=== PATIENT | male | born 1945 | race Caucasian/White ===

== ENCOUNTER 2022-10-02 13:19 | Emergency (ER) | payer MEDICARE, OTHER ==
[~2022-10-02] VITALS: Ht 180.3 cm; Wt 84.0 kg
[2022-10-02 14:01] LABS: BASOPHILS % (AUTO) 0.3 % (0-1); EOSINOPHILS % (AUTO) 0.3 % (0-6); HEMATOCRIT 38.2 % (42.0-52.0); HEMOGLOBIN 12.6 g/dl (14.0-17.9); LYMPHOCYTES # (AUTO) 2.3 X10'3 (1.1-4.8); LYMPHOCYTES % (AUTO) 17.4 % (21-51); MEAN CORPUSCULAR HEMOGLOBIN 29.3 PG (27.0-31.0); MEAN CORPUSCULAR VOLUME 88.9 FL (78-98); MEAN PLATELET VOLUME 7.2 FL (7.4-10.4); MONOCYTES # (AUTO) 0.7 X10'3 (0-0.9); PLATELET COUNT 348 X10'3 (140-440); RED CELL DISTRIBUTION WIDTH 13.3 % (11.5-14.5); WHITE BLOOD COUNT 13.1 X10'3 (4.5-11.0)
[2022-10-02 14:13] LABS: ALANINE AMINOTRANSFERASE 34 U/L (12-78); ALBUMIN 4.2 G/DL (3.4-5.0); ALBUMIN/GLOBULIN RATIO 1.2 (1.1-1.5); ALKALINE PHOSPHATASE 70 IU/L (46-116); ANION GAP 12 (8-16); ASPARTATE AMINO TRANSFERASE 38 U/L (10-37); BILIRUBIN,TOTAL 0.6 MG/DL (0.1-1.0); BLOOD UREA NITROGEN 40 MG/DL (7-18); BUN/CREATININE RATIO 21.4 (5.4-32.0); CALCIUM 9.6 MG/DL (8.5-10.1); CHLORIDE 104 MMOL/L (99-107); CREATININE 1.87 MG/DL (0.60-1.10); GLUCOSE 152 MG/DL (70-104); POTASSIUM 3.8 MMOL/L (3.5-5.1); SODIUM 141 MMOL/L (135-145); TOTAL CARBON DIOXIDE 24.6 MMOL/L (24-32); TOTAL PROTEIN 7.8 G/DL (6.4-8.2); eGFR 35 ML/MIN
[2022-10-02] MEDS ORDERED: dextrose 5%-normal saline 1,000 ML IV ONE (14:20)
[2022-10-02] MEDS ORDERED: morphine 4 MG/ML inj SYRINge IV ONE (14:20)
[2022-10-02] MEDS ORDERED: ondansetron/PF 4mg/2ml inj IV ONE (14:20)
[2022-10-02] MEDS ORDERED: TRAM1TAB7 PO (15:20)
[2022-10-02] MEDS ORDERED: ONDA4TAB12 PO (15:20)
[2022-10-02] MEDS ORDERED: HYDROcodone/acetaminophen 10/325mg tab PO ONE (15:20)
[2022-10-02] MEDS ORDERED: FLO0.4C PO (15:20)
[2022-10-02 16:05] VITALS: BP 126/80
== END 2022-10-02 16:06 | disposition home or self-care (01) ==
LOC: ER 13:19
DX: N20.1 Calculus of ureter (principal); R10.31 Right lower quadrant pain; R11.0 Nausea; E78.00 Pure hypercholesterolemia, unspecified; I10 Essential (primary) hypertension; I25.2 Old myocardial infarction; Z98.890 Other specified postprocedural states; Z79.899 Other long term (current) drug therapy
CPT/HCPCS: 36415; 74176; 80053; 85025; 96361; 96374; 96375; 99285; J2270; J2405; J7042; A4615

== ENCOUNTER 2023-05-02 09:55 | Emergency (ER) | payer MEDICARE, OTHER ==
[~2023-05-02] VITALS: Ht 180.3 cm; Wt 75.0 kg
[~2023-05-02 09:55] MED LIST: ASCO-139 PO; ASPI-611 PO; BETA1TAB20 PO; CALC-336 PO; CHOL20004 PO; EZET10TA48 PO; IODINE PO; LEVO100T9 PO; LISI5TAB22 PO; METO-395 PO; MULT-1085 PO; PROSTAVAN PO; TURM500C4 PO; VITAMIN B1 PO; VITAMIN B12 SPRAY PO
[2023-05-02 11:00] VITALS: BP 119/60; PULSE 92; TEMP 99.7; O2SAT 97
[2023-05-02] MEDS ORDERED: NAPR-1154 PO (12:09)
[2023-05-02] MEDS ORDERED: CYCL-1 PO (12:09)
[2023-05-02] MEDS ORDERED: diazepam inj 5 MG/ML inj. IM ONE (12:10)
[2023-05-02] MEDS ORDERED: ketorolac tromethamine 15mg/ml inj. IM ONE (12:10)
[2023-05-02 12:29] VITALS: RESP 18
== END 2023-05-02 12:42 | disposition home or self-care (01) ==
LOC: ER 09:55
DX: S76.811A Strain of other specified muscles, fascia and tendons at thigh level, right thigh, initial encounter (principal); X58.XXXA Exposure to other specified factors, initial encounter; Y93.89 Activity, other specified; Y92.89 Other specified places as the place of occurrence of the external cause; Y99.8 Other external cause status
CPT/HCPCS: 96372; 99284; J1885; J3360

== ENCOUNTER 2023-09-12 09:54 | Outpatient (CLI) | payer MEDICARE, OTHER ==
[~2023-09-12 09:54] MED LIST changes: +CYCL-1 PO; +NAPR-1154 PO
== END 2023-09-12 23:59 | disposition home or self-care (01) ==
LOC: RAD 09:54
PROVIDERS: ATTEND Internal Medicine
DX: R91.8 Other nonspecific abnormal finding of lung field (principal); I25.10 Atherosclerotic heart disease of native coronary artery without angina pectoris; M47.814 Spondylosis without myelopathy or radiculopathy, thoracic region
CPT/HCPCS: 71250